=== PATIENT | male | born 1950 | race Caucasian/White ===

== ENCOUNTER 2018-03-16 12:16 | Outpatient (CLI) | payer BC ==
--- NOTE | 2018-03-16 13:36 | RAD ---
RADIOGRAPH CHEST 2 VIEWS: HISTORY: A 67-year-old male with cough. FINDINGS: There is no air space density, pulmonary edema, pleural effusion, pneumothorax, or cardiomegaly. IMPRESSION: No acute cardiopulmonary findings. jn [] POS: [facility]
== END 2018-03-16 12:17 | disposition home or self-care (01) ==
LOC: BICRAD 12:16
PROVIDERS: ATTEND Allergy & Immunology
DX: R05 Cough (principal)
CPT/HCPCS: 71046

== ENCOUNTER 2021-01-21 13:00 | Observation (INO) | payer BC ==
[2021-01-21 13:42] LABS: #Basophils 0.1 thou/uL (0.0-0.2); #Eosinphils 0.1 thou/uL (0.0-0.7); #Lymphocytes 1.4 thou/uL (1.20-3.40); #Monocytes 0.3 thou/uL (0.11-0.59); #Neutrophils 4.3 thou/uL (1.40-6.50); %Basophils 0.9 % (0.0-1.0); %Eosinophils 0.9 % (0.0-10.0); %Lymphocytes 22.6 % (21.0-51.0); %Monocytes 5.2 % (0.0-10.0); %Neutrophils 70.5 % (42.0-75.0); Hemoglobin 14.8 g/dL (14.0-18.0); Mean Corpuscular HGB CONC 34.5 g/dL (32.0-36.0); Mean Corpuscular Hemoglobin 30.9 pg (27.0-31.0); Mean Corpuscular Volume 89.5 fL (78.0-98.0); Mean Platelet Volume 6.8 fL (7.4-10.4); Platelet Count 227 thou/uL (130-400); RBC Distribution Width 11.1 % (11.5-14.5); Red Blood Cell (RBC) Count 4.79 mill/uL (4.70-6.10); White Blood Cell (WBC) Count 6.1 thou/uL (4.8-10.8)
[2021-01-21 14:07] LABS: PTT 27.7 sec (22.9-36.1); Prothrombin Time 13.5 sec (12.0-14.7)
[2021-01-21 14:08] LABS: ALT (SGPT) 19 U/L (8-55); AST (SGOT) 19 U/L (5-34); Albumin 4.9 g/dL (3.4-4.8); Alkaline Phosphatase 64 U/L (40-110); Anion Gap 16 mmol/L (10-20); BUN (Urea Nitrogen) 17 mg/dL (8.4-25.7); Bilirubin, Total 0.9 mg/dL (0.2-1.2); Calc. Creatinine Clearance 0 mL/min (70-130); Calcium 10.4 mg/dL (7.8-10.44); Carbon Dioxide 24 mmol/L (23-31); Chloride 102 mmol/L (98-107); Globulin 3.3 g/dL (2.4-3.5); Glucose 101 mg/dL (80-115); Potassium 3.8 mmol/L (3.5-5.1); Protein, Total 8.2 g/dL (5.8-8.1); Sodium 138 mmol/L (136-145)
[2021-01-21] MEDS ORDERED: Bisacodyl 5 MG TAB PO PRN (19:09)
[2021-01-21] MEDS ORDERED: Acetaminophen 325 MG TAB PO PRN (19:09)
[2021-01-21] MEDS ORDERED: Ondansetron PF 4 MG/2 ML Vial IVP PRN (19:09)
[2021-01-21] MEDS ORDERED: Senokot S 8.6-50 MG TAB PO PRN (19:09)
[2021-01-21] MEDS ORDERED: Melatonin 3 MG TAB PO PRN (19:27)
[2021-01-21] MEDS ORDERED: hydrALAZINE 20 MG/ML VIAL SLOW IVP PRN (19:27)
[2021-01-21 19:53] VITALS: BMI 30.4
[2021-01-21 20:52] LABS: Troponin I Less than 0.010 ng/mL (< 0.028)
[2021-01-21] MEDS: Famotidine/PF 20 mg/2ml Vial SLOW IVP SCH (20:53)
[2021-01-21 23:29] LABS: Troponin I Less than 0.010 ng/mL (< 0.028)
[2021-01-21] MEDS ORDERED: HYDROcodone/Acetaminophen 7.5/325 mg Tablet PO PRN (23:38)
[2021-01-21] MEDS ORDERED: HYDROcodone/Acetaminophen 5/325 mg Tablet PO PRN (23:38)
[2021-01-22 07:01] LABS: #Eosinphils 0.1 thou/uL (0.0-0.7); #Lymphocytes 1.4 thou/uL (1.20-3.40); #Monocytes 0.4 thou/uL (0.11-0.59); #Neutrophils 3.8 thou/uL (1.40-6.50); %Basophils 0.8 % (0.0-1.0); %Eosinophils 1.9 % (0.0-10.0); %Lymphocytes 24.3 % (21.0-51.0); %Monocytes 7.2 % (0.0-10.0); %Neutrophils 65.9 % (42.0-75.0); Mean Corpuscular HGB CONC 33.5 g/dL (32.0-36.0); Mean Corpuscular Hemoglobin 30.8 pg (27.0-31.0); Mean Corpuscular Volume 91.9 fL (78.0-98.0); Mean Platelet Volume 7.1 fL (7.4-10.4); Platelet Count 203 thou/uL (130-400); RBC Distribution Width 11.4 % (11.5-14.5); Red Blood Cell (RBC) Count 4.24 mill/uL (4.70-6.10); White Blood Cell (WBC) Count 5.8 thou/uL (4.8-10.8)
[2021-01-22 07:27] LABS: ALT (SGPT) 15 U/L (8-55); AST (SGOT) 16 U/L (5-34); Alkaline Phosphatase 53 U/L (40-110); Anion Gap 10 mmol/L (10-20); BUN (Urea Nitrogen) 17 mg/dL (8.4-25.7); Bilirubin, Total 0.6 mg/dL (0.2-1.2); Calc. Creatinine Clearance 77 mL/min (70-130); Calcium 9.5 mg/dL (7.8-10.44); Carbon Dioxide 26 mmol/L (23-31); Chloride 107 mmol/L (98-107); Globulin 3.1 g/dL (2.4-3.5); Glucose 98 mg/dL (80-115); Potassium 4.2 mmol/L (3.5-5.1); Protein, Total 7.1 g/dL (5.8-8.1); Sodium 139 mmol/L (136-145)
[2021-01-22 07:50] LABS: Bacteria/HPF None Seen HPF (None Seen); Bilirubin Negative (Negative); Blood, Urine Negative (Negative); Clarity Clear (Clear); Glucose, Urine (Dipstick) Normal (Negative); Ketone, Urine Negative (Negative); Leukocyte Negative Leu/uL (Negative); Nitrite Negative (Negative); Protein, Urine (Dipstick) Negative (Neg-Trace); RBC/HPF None Seen HPF (0-3); Specific Gravity, Urine 1.015 (1.002-1.036); Squamous Epithelial None Seen HPF (0-3); Urobilinogen Normal mg/dL (Less than 2); WBC/HPF 0-3 HPF (0-3)
[2021-01-22] MEDS ORDERED: Tamsulosin HCl 0.4 MG CAP PO SCH ×2 (09:00→21:00)
[2021-01-22] MEDS: Amlodipine 10 MG TAB PO SCH (09:50)
[2021-01-22] MEDS: Losartan 25 MG TAB PO SCH (09:51)
[2021-01-22] MEDS: Famotidine/PF 20 mg/2ml Vial SLOW IVP SCH (10:31)
[2021-01-22] MEDS: Famotidine 20 MG TAB PO SCH (20:28)
[2021-01-22] MEDS ORDERED: hydrOXYzine 10 MG TAB PO SCH (21:00)
[2021-01-23 05:37] LABS: Cardiac Risk 3.7 (Less than 4.5)
[2021-01-23] MEDS ORDERED: Levothyroxine Sodium 75 MCG TAB PO SCH (06:00)
[2021-01-23] MEDS ORDERED: Aspirin Chewable 81 MG TAB PO SCH (09:00)
[2021-01-23] MEDS ORDERED: Pioglitazone HCl 15 MG TAB PO SCH (09:00)
[2021-01-23] MEDS ORDERED: ADENOSINE 60 MG/20 ML VIAL ONE (09:13)
[2021-01-23 11:52] VITALS: BP 141/65; TEMP 98.2
[2021-01-23] MEDS: Amlodipine 10 MG TAB PO SCH (11:54)
[2021-01-23] MEDS: Famotidine 20 MG TAB PO SCH (11:54)
[2021-01-23] MEDS: Losartan 25 MG TAB PO SCH (11:54)
== END 2021-01-23 13:45 | disposition home or self-care (01) ==
LOC: ERS 13:00 → 2SW 18:14
PROVIDERS: ADMIT Internal Medicine; ATTEND Internal Medicine
DX: R55 Syncope and collapse (principal); R00.2 Palpitations; R42 Dizziness and giddiness; R53.1 Weakness; R06.02 Shortness of breath; M47.22 Other spondylosis with radiculopathy, cervical region; M50.122 Cervical disc disorder at C5-C6 level with radiculopathy; I10 Essential (primary) hypertension; E03.9 Hypothyroidism, unspecified; E11.9 Type 2 diabetes mellitus without complications; Z79.82 Long term (current) use of aspirin; Z79.899 Other long term (current) drug therapy
CPT/HCPCS: 36415; 70450; 71045; 72141; 78452; 80053; 80061; 81001; 84484; 85025; 85379; 85610; 85730; 93005; 93017; 93306; 93880; 96374; A9500; G0378; J0153; S0028